=== PATIENT | female | born 1990 | race African-American/Black ===

== ENCOUNTER 2024-03-13 13:16 | Emergency (ER) | payer OTHER ==
[2024-03-13] MEDS ORDERED: Ibuprofen 800 MG TAB ONE (13:26)
== END 2024-03-13 13:35 | disposition home or self-care (01) ==
LOC: BURERS 13:16
DX: S80.12XA Contusion of left lower leg, initial encounter (principal); S20.319A Abrasion of unspecified front wall of thorax, initial encounter; V43.52XA Car driver injured in collision with other type car in traffic accident, initial encounter; W22.11XA Striking against or struck by driver side automobile airbag, initial encounter; Y93.89 Activity, other specified; Y92.410 Unspecified street and highway as the place of occurrence of the external cause
CPT/HCPCS: 99283